=== PATIENT | male | born 1965 | race Caucasian/White ===

== ENCOUNTER → 2022-10-10 | Outpatient (CLI) | payer OTHER ==
--- NOTE | 2022-10-11 08:57 | MR ---
EXAMINATION TYPE: MR knee LT wo con DATE OF EXAM: 10/10/2022 COMPARISON: None HISTORY: Left knee outer and posterior pain, swelling and locking-problem since 1985 due to an accide nt TECHNIQUE: Multiplanar, multisequence imaging of the left knee is performed without IV contrast. FINDINGS: MEDIAL MENISCUS: Anterior and posterior horns are intact without tear. LATERAL MENISCUS: Anterior and posterior horns are intact without tear. CRUCIATE LIGAMENTS: The anterior and posterior cruciate ligaments are intact and unremarkable. COLLATERAL LIGAMENTS: The medial collateral ligament and lateral collateral ligament complex are inta ct and unremarkable. EXTENSOR MECHANISM: Visualized quadriceps and patellar tendons are intact. EFFUSION: No significant suprapatellar joint effusion. POPLITEAL CYST: No popliteal/swanson cyst. TRICOMPARTMENT SPACES: Moderate patellofemoral joint space narrowing. Mild narrowing medial tibiofemo ral joint space. CARTILAGE: Intact BONE MARROW SIGNAL: No focal abnormal marrow signal is appreciated. OTHER: No additional significant abnormality is appreciated. IMPRESSION: Moderate patellofemoral joint space narrowing. Mild narrowing medial tibiofemoral joint space.
== END | disposition home or self-care (01) ==
LOC: RADMRIMAIN 21:45
PROVIDERS: ATTEND Orthopaedic Surgery
DX: M22.2X2 Patellofemoral disorders, left knee (principal); M25.862 Other specified joint disorders, left knee

== ENCOUNTER → 2023-03-09 | Outpatient (CLI) | payer OTHER ==
--- NOTE | 2023-03-09 15:55 | US ---
EXAMINATION TYPE: US arterial LE single level DATE OF EXAM: 03/09/2023 2:54 PM CLINICAL INDICATION: Male, 57 years old with history of I73.9 PERIPHERAL VASCULAR DISEASE, UNSPECIFIE D; Occasional right foot swelling x 15+ years History of: Smoker: No Hypertension: No Diabetic: No Hyperlipidemia: No TIA/CVA: No Previous Vascular Surgery: No [place]: No Doppler Waveforms: Right: Multiphasic Left: Multiphasic Pulse Volume Recording: Pressure Gradients: Right Brachial Pressure: 111 Left Brachial Pressure: 126 Ankle-Brachial Indices: Right: 1.16 Left: 1.18 Toe Brachial Indices: Right: 0.97 Left: 0.92 IMPRESSION: Bilateral ankle brachial indices within normal limits.
== END | disposition home or self-care (01) ==
LOC: RADUSWWP 14:15
DX: I73.9 Peripheral vascular disease, unspecified (principal); M79.89 Other specified soft tissue disorders
CPT/HCPCS: 93922